=== PATIENT | male | born 1990 | race Caucasian/White ===

== ENCOUNTER 2017-05-23 15:54 | Emergency (ER) | payer OTHER ==
[2017-05-23 16:06] VITALS: BP 141/90; PULSE 81; RESP 16; TEMP 99.3; O2SAT 94
--- NOTE | 2017-05-23 17:38 | EDPHY ---
H & P Stated Complaint: lump R testicle Time Seen by Provider: 05/23/17 17:32 HPI/ROS: CHIEF COMPLAINT: Testicle lump HISTORY OF PRESENT ILLNESS: The patient is a 26-year-old man who states that he is watching a movie and felt his testicles and noticed a lump. He became concerned. It is not tender. Not erythematous. He has not had any discharge or pain. No trauma. REVIEW OF SYSTEMS: Constitutional: denies: chills, fever, recent illness, recent injury EENTM: denies: blurred vision, double vision, nose congestion Respiratory: denies: cough, shortness of breath Cardiac: denies: chest pain, irregular heart rate, lightheadedness, palpitations Gastrointestinal/Abdominal: denies: abdominal pain, diarrhea, nausea, vomiting, blood streaked stools Genitourinary: denies: dysuria, frequency, hematuria, pain Musculoskeletal: denies: joint pain, muscle pain Skin: denies: lesions, rash, jaundice, bruising Neurological: denies: headache, numbness, paresthesia, tingling, dizziness, weakness Hematologic/Lymphatic: denies: blood clots, easy bleeding, easy bruising Immunologic/allergic: denies: HIV/AIDS, transplant EXAM: GENERAL: Well-appearing, well-nourished and in no acute distress. HEAD: Atraumatic, normocephalic. EYES: Pupils equal round and reactive to light, extraocular movements intact, sclera anicteric, conjunctiva are normal. ENT: TMs normal, nares patent, oropharynx clear without exudates. Moist mucous membranes. NECK: Normal range of motion, supple without lymphadenopathy or JVD. LUNGS: Breath sounds clear to auscultation bilaterally and equal. No wheezes rales or rhonchi. HEART: Regular rate and rhythm without murmurs, rubs or gallops. ABDOMEN: Soft, nontender, normoactive bowel sounds. No guarding, no rebound. No masses appreciated. : The testicles are normal exam, no tenderness, normal cremasteric. The patient initially could not find a lump on his right testicle but when he did it was clearly the epididymis. I showed him that it is the same on his left testicle. He felt reassured. He declined any further workup or testing. BACK: No CVA tenderness, no spinal tenderness, step-offs or deformities EXTREMITIES: Normal range of motion, no pitting or edema. No clubbing or cyanosis. NEUROLOGICAL: Cranial nerves II through XII grossly intact. Normal speech, normal gait. 5/5 strength, normal movement in all extremities, normal sensation PSYCH: Normal mood, normal affect. SKIN: Warm, dry, normal turgor, no visible rashes or lesions. Source: Patient Exam Limitations: No limitations - Personal History Current Tetanus Diphtheria and Acellular Pertussis (TDAP): Yes - Medical/Surgical History Hx Asthma: No Hx Chronic Respiratory Disease: No Hx Diabetes: No Hx Cardiac Disease: No Hx Renal Disease: No Hx Cirrhosis: No Hx Alcoholism: No Hx HIV/AIDS: No Hx Splenectomy or Spleen Trauma: No Other PMH: denies - Family History Significant Family History: No pertinent family hx - Social History Smoking Status: Never smoked Alcohol Use: Sober Constitutional: Initial Vital Signs Temperature (C) 37.4 C 05/23/17 16:04 Heart Rate 81 05/23/17 16:04 Respiratory Rate 16 05/23/17 16:04 Blood Pressure 141/90 H 05/23/17 16:04 O2 Sat (%) 94 05/23/17 16:04 O2 Delivery Mode Room Air Allergies/Adverse Reactions: aquiles Allergy (Uncoded 05/23/17 16:07) pollen Allergy (Uncoded 05/23/17 16:07) Medical Decision Making ED Course/Re-evaluation: Patient feels reassured. He declines imaging or tests. We discussed indications for returning. Differential Diagnosis: Partial list of the Differential diagnosis considered include but were not limited to; normal epididymis, trauma, tumor and although unlikely based on the history and physical exam, I also considered torsion, testicular appendix. I discussed these differential diagnoses and the plan with the patient as well as the usual and expected course. The patient understands that the diagnosis is provisional and that in medicine we are not always correct and that further workup is often warranted. Usual and customary warnings were given. All of the patient's questions were answered. The patient was instructed to return to the emergency department should the symptoms at all worsen or return, otherwise to followup with the physician as we discussed. Departure - Departure Disposition: Home, Routine, Self-Care Clinical Impression: Normal epididymis Condition: Fair Instructions: Testicle Pain (ED) Referrals: NONE *PRIMARY CARE P,. [Primary Care Provider] - As per Instructions Nicolas Busby MD [Medical Doctor] - As per Instructions
== END 2017-05-23 17:45 | disposition home or self-care (01) ==
DX: N45.1 Epididymitis (principal)